=== PATIENT | female | born 1960 | race Caucasian/White ===

== ENCOUNTER 2023-03-30 07:44 | Inpatient (IN) | payer OTHER, MEDICAID ==
[2023-03-29 09:54] LABS: BASOPHILS % (AUTO) 0.7 % (0.0-2.0); EOSINOPHILS # (AUTO) 1.3 K/uL (0.0-0.4); EOSINOPHILS % (AUTO) 18.3 % (0.0-4.0); HEMATOCRIT 34.2 % (36-48); HEMOGLOBIN 11.6 g/dL (12.0-16.0); LYMPHOCYTES # (AUTO) 1.8 K/uL (1.0-5.5); LYMPHOCYTES % (AUTO) 24.9 % (20.5-51.5); MEAN CORPUSCULAR HEMOGLOBIN 31 pg (27-31); MEAN CORPUSCULAR HGB CONC 34 % (32-36); MEAN CORPUSCULAR VOLUME 91 fL (79.0-98.0); MONOCYTES # (AUTO) 0.3 K/uL (0.0-1.0); MONOCYTES % (AUTO) 4.8 % (1.7-9.3); NEUTROPHILS # (AUTO) 3.6 K/uL (1.8-7.7); NEUTROPHILS % (AUTO) 51.3 % (40.0-70.0); PLATELET COUNT (AUTO) 358 K/uL (130-430); RED BLOOD CELL COUNT(AUTO) 3.75 MIL/uL (4.2-6.2); RED CELL DISTRIBUTION WIDTH 14.8 % (9.0-15.0); WHITE BLOOD COUNT (AUTO) 7.1 K/uL (4.8-10.8)
[2023-03-29 10:11] LABS: ALBUMIN 3.4 g/dL (3.4-4.8); CALCIUM 9.2 mg/dL (8.4-11.0); CREATININE 0.69 mg/dL (0.55-1.30); POTASSIUM 3.8 mmol/L (3.5-5.1); PROTHROMBIN TIME 9.9 SECS (9.5-12.5); TOTAL BILIRUBIN 0.3 mg/dL (0.0-1.0); TOTAL PROTEIN, SERUM 7.4 g/dL (6.4-8.3)
[~2023-03-30] VITALS: Ht 165.1 cm; Wt 82.6 kg
[~2023-03-30 07:44] MED LIST: ACETAMINOPHEN 500 MG TABLET PO ONE; CEFAZOLIN SOD 2 GM in D5W 50 ML IV ONE; CELECOXIB 200 MG CAPSULE PO ONE; GABAPENTIN 300 MG CAPSULE PO ONE; SCOPOLAMINE HYDROBROMIDE 1 MG PATCH .72 H (TRANSDERM-SCOP) TD ONE; oxyCODONE HCL 10 MG TAB.ER.12H PO ONE
[2023-03-30] MEDS ORDERED: ACETAMINOPHEN 500 MG TABLET ONE (07:55)
[2023-03-30] MEDS ORDERED: SCOPOLAMINE HYDROBROMIDE 1 MG PATCH .72 H (TRANSDERM-SCOP) TD ONE (07:55)
[2023-03-30] MEDS ORDERED: GABAPENTIN 300 MG CAPSULE ONE (07:56)
[2023-03-30] MEDS ORDERED: CELECOXIB 200 MG CAPSULE ONE (07:56)
[2023-03-30] MEDS ORDERED: oxyCODONE HCL 10 MG TAB.ER.12H PO ONE (07:57)
[2023-03-30] MEDS ORDERED: CELE200C PO (09:05)
[2023-03-30] MEDS ORDERED: GABA-529 PO (09:05)
[2023-03-30] MEDS ORDERED: CHOL3000 (09:05)
[2023-03-30] MEDS ORDERED: ANAS1TAB51 PO (09:05)
[2023-03-30] MEDS ORDERED: ASPI-1393 PO (09:05)
[2023-03-30] MEDS ORDERED: LOSA-415 PO (09:05)
[2023-03-30] MEDS ORDERED: CEL20 PO (09:05)
[2023-03-30] MEDS ORDERED: LOSA-412 PO (09:05)
[2023-03-30] MEDS ORDERED: AMOX500C2 PO (09:05)
[2023-03-30] MEDS ORDERED: FERR-69 PO (09:05)
[2023-03-30] MEDS ORDERED: NALOXONE HCL 0.4 MG/ML AMP (NARCAN) IVP PRN ×3 (09:45)
[2023-03-30] MEDS ORDERED: DIPHENHYDRAMINE HCL 25 MG CAPSULE PO PRN (09:45)
[2023-03-30] MEDS ORDERED: LACTULOSE 20 GM/30 ML UDC PO PRN (09:45)
[2023-03-30] MEDS ORDERED: METOCLOPRAMIDE HCL 10 MG/2 ML VIAL IVP PRN ×2 (09:45→11:00)
[2023-03-30] MEDS ORDERED: BISACODYL 10 MG/SUPPOSITORY RC PRN (09:45)
[2023-03-30] MEDS ORDERED: fentaNYL CITRATE/PF 100 MCG/2 ML AMP ONE (10:00)
[2023-03-30] MEDS ORDERED: ONDANSETRON HCL 4 MG/2 ML VIAL ONE (10:00)
[2023-03-30] MEDS ORDERED: DEXAMETHASONE SOD PHOSPHATE 4 MG/ML VIAL ONE (10:00)
[2023-03-30] MEDS ORDERED: BUPIVACAINE /PF 0.25% 30 ML VIAL INJ ONE (10:00)
[2023-03-30] MEDS ORDERED: VANCOMYCIN HCL 1000 MG/VIAL IV ONE (10:00)
[2023-03-30] MEDS ORDERED: TRANEXAMIC ACID 1,000 MG/10 ML VIAL ONE (10:00)
[2023-03-30] MEDS ORDERED: WATER FOR IRRIGATION,STERILE 1,000 ML IRRIG.SOLN IR ONE (10:00)
[2023-03-30] MEDS ORDERED: NS IRRIG SOLN 1000 ML IR ONE (10:00)
[2023-03-30] MEDS ORDERED: NS 1000 ML IV.SOLN IV ONE (10:00)
[2023-03-30] MEDS ORDERED: MIDAZOLAM HCL/PF 2 MG/2 ML SYRINGE ONE (10:00)
[2023-03-30] MEDS ORDERED: LR 1,000 ML IV.SOLN IV ONE (10:00)
[2023-03-30] MEDS ORDERED: MIDAZOLAM HCL 2 MG/2 ML VIAL (VERSED) IVP PRN (11:00)
[2023-03-30] MEDS: LR 1,000 ML IV SCH ×2 (11:00→21:01)
[2023-03-30] MEDS ORDERED: LORATADINE 10 MG TABLET PO PRN (11:00)
[2023-03-30] MEDS ORDERED: MEPERIDINE HCL/PF 25 MG/ML DISP.SYRIN IVP PRN (11:00)
[2023-03-30] MEDS ORDERED: oxyCODONE HCL 5 MG TABLET PO PRN ×2 (11:00)
[2023-03-30] MEDS ORDERED: traMADol HCL HCL 50 MG TABLET (ULTRAM) PO PRN (11:00)
[2023-03-30] MEDS ORDERED: HYDROmorphone 1 MG/ML INJ. CARTRIDGE IVP PRN ×5 (11:00)
[2023-03-30] MEDS ORDERED: ONDANSETRON HCL 4 MG/2 ML VIAL IVP PRN (11:45)
[2023-03-30] MEDS ORDERED: HYDROmorphone 1 MG/ML INJ. CARTRIDGE ONE (13:15)
[2023-03-30 13:30] VITALS: BP_SYST 153; PULSE 74; RESP 16; TEMP 97.9; O2SAT 94; O2SAT 95
[2023-03-30] MEDS: ACETAMINOPHEN 500 MG TABLET PO SCH ×2 (15:34→22:57)
[2023-03-30] MEDS: KETOROLAC TROMETHAMINE 10 MG TABLET (TORADOL) PO SCH ×2 (15:35→22:00)
[2023-03-30 16:00] VITALS: BP_SYST 122; PULSE 73; RESP 18; TEMP 97.6; O2SAT 94
[2023-03-30] MEDS: ceFAZolin SODIUM 2 GM in D5W 100 ML IV SCH (17:51)
[2023-03-30 20:00] VITALS: BP_SYST 125; PULSE 78; RESP 18; TEMP 98.6; O2SAT 98
[2023-03-30] MEDS: SENNOSIDES/DOCUSATE SODIUM 1 TAB TABLET(SENOKOT-S) PO SCH (21:00)
[2023-03-31 00:30] VITALS: BP_SYST 112; PULSE 67; RESP 18; TEMP 98.4; O2SAT 93
[2023-03-31] MEDS: ceFAZolin SODIUM 2 GM in D5W 100 ML IV SCH ×2 (02:30→10:08)
[2023-03-31 06:26] LABS: BASOPHILS % (AUTO) 0.1 % (0.0-2.0); EOSINOPHILS % (AUTO) 0.1 % (0.0-4.0); HEMATOCRIT 29.6 % (36-48); LYMPHOCYTES # (AUTO) 1.1 K/uL (1.0-5.5); LYMPHOCYTES % (AUTO) 12.2 % (20.5-51.5); MEAN CORPUSCULAR HEMOGLOBIN 31 pg (27-31); MEAN CORPUSCULAR HGB CONC 34 % (32-36); MEAN CORPUSCULAR VOLUME 91 fL (79.0-98.0); MONOCYTES # (AUTO) 0.6 K/uL (0.0-1.0); MONOCYTES % (AUTO) 6.6 % (1.7-9.3); NEUTROPHILS # (AUTO) 7.4 K/uL (1.8-7.7); PLATELET COUNT (AUTO) 323 K/uL (130-430); RED BLOOD CELL COUNT(AUTO) 3.25 MIL/uL (4.2-6.2); RED CELL DISTRIBUTION WIDTH 14.5 % (9.0-15.0); WHITE BLOOD COUNT (AUTO) 9.2 K/uL (4.8-10.8)
[2023-03-31] MEDS: ACETAMINOPHEN 500 MG TABLET PO SCH (06:31)
[2023-03-31] MEDS: KETOROLAC TROMETHAMINE 10 MG TABLET (TORADOL) PO SCH (06:44)
[2023-03-31 07:10] LABS: ALBUMIN 2.8 g/dL (3.4-4.8); CALCIUM 9.1 mg/dL (8.4-11.0); CREATININE 0.84 mg/dL (0.55-1.30); POTASSIUM 4.1 mmol/L (3.5-5.1); TOTAL BILIRUBIN 0.2 mg/dL (0.0-1.0); TOTAL PROTEIN, SERUM 6.5 g/dL (6.4-8.3)
[2023-03-31 08:00] VITALS: O2SAT 99
[2023-03-31] MEDS ORDERED: ASPIRIN 81 MG TAB.CHEW PO SCH (09:00)
[2023-03-31] MEDS ORDERED: LOSARTAN POTASSIUM 25 MG TABLET PO SCH (09:00)
[2023-03-31] MEDS ORDERED: GABAPENTIN 100 MG CAPSULE PO SCH (09:00)
[2023-03-31] MEDS ORDERED: CITALOPRAM HYDROBROMIDE 20 MG TABLET PO SCH (09:00)
[2023-03-31] MEDS ORDERED: DECADRON 4 MG TABLET PO SCH (09:00)
[2023-03-31] MEDS: SENNOSIDES/DOCUSATE SODIUM 1 TAB TABLET(SENOKOT-S) PO SCH (10:03)
[2023-03-31] MEDS ORDERED: CELECOXIB 200 MG CAPSULE PO SCH (11:00)
[2023-03-31 11:04] VITALS: BP_SYST 136; PULSE 64; RESP 15; TEMP 97.7; O2SAT 95
== END 2023-03-31 13:00 | disposition home health service (06) | DRG 470 ==
LOC: SMU 07:44
PROVIDERS: ADMIT Student in an Organized Health Care Education/Training Program; ATTEND Student in an Organized Health Care Education/Training Program
PROC: 0SRC0J9 Replacement of Right Knee Joint with Synthetic Substitute, Cemented, Open Approach (ICD-10-PCS; principal; 2023-03-30 10:07)
DX: M17.11 Unilateral primary osteoarthritis, right knee (principal); Z79.82 Long term (current) use of aspirin; Z79.899 Other long term (current) drug therapy
CPT/HCPCS: 36415; 73560-TC; 80053; 82962; 85025; 85610-TC; 85730-TC; 87081; 88305; 88311; 96379; 97110-GP; 97116-GP; 97530-GP; C1713; C1776; J0690; J1100; J1170; J2405; J3010; J3370; J3465; J3490; J7030; J7060; J7120; J8540

== ENCOUNTER 2023-10-28 11:34 | Outpatient (CLI) | payer OTHER, MEDICAID ==
[~2023-10-28 11:34] MED LIST changes: -ACETAMINOPHEN 500 MG TABLET PO ONE; +AMOX500C2 PO; +ANAS1TAB51 PO; +ASPI-1393 PO; -CEFAZOLIN SOD 2 GM in D5W 50 ML IV ONE; +CEL20 PO; +CELE200C PO; -CELECOXIB 200 MG CAPSULE PO ONE; +CHOL3000; +FERR-69 PO; +GABA-529 PO; -GABAPENTIN 300 MG CAPSULE PO ONE; +LOSA-412 PO; +LOSA-415 PO; -SCOPOLAMINE HYDROBROMIDE 1 MG PATCH .72 H (TRANSDERM-SCOP) TD ONE; -oxyCODONE HCL 10 MG TAB.ER.12H PO ONE
== END 2023-10-28 19:48 | disposition home or self-care (01) ==
LOC: SCT 11:34
PROVIDERS: ATTEND Student in an Organized Health Care Education/Training Program
DX: M17.12 Unilateral primary osteoarthritis, left knee (principal)

== ENCOUNTER 2023-11-02 05:00 | Day surgery (SDC) | payer OTHER, MEDICAID ==
[2023-10-28 11:52] LABS: BASOPHILS # (AUTO) 0.1 K/uL (0.0-0.2); BASOPHILS % (AUTO) 0.8 % (0.0-2.0); EOSINOPHILS # (AUTO) 1.2 K/uL (0.0-0.4); EOSINOPHILS % (AUTO) 17.4 % (0.0-4.0); HEMATOCRIT 36.5 % (36-48); HEMOGLOBIN 12.2 g/dL (12.0-16.0); LYMPHOCYTES # (AUTO) 2.4 K/uL (1.0-5.5); LYMPHOCYTES % (AUTO) 35.5 % (20.5-51.5); MEAN CORPUSCULAR HEMOGLOBIN 30 pg (27-31); MEAN CORPUSCULAR HGB CONC 33 % (32-36); MEAN CORPUSCULAR VOLUME 91 fL (79.0-98.0); MONOCYTES # (AUTO) 0.4 K/uL (0.0-1.0); NEUTROPHILS # (AUTO) 2.7 K/uL (1.8-7.7); NEUTROPHILS % (AUTO) 40.3 % (40.0-70.0); PLATELET COUNT (AUTO) 345 K/uL (130-430); RED BLOOD CELL COUNT(AUTO) 4.02 MIL/uL (4.2-6.2); RED CELL DISTRIBUTION WIDTH 15.1 % (9.0-15.0); WHITE BLOOD COUNT (AUTO) 6.7 K/uL (4.8-10.8)
[2023-10-28 12:06] LABS: PROTHROMBIN TIME 10.3 SECS (9.5-12.5)
[2023-10-28 12:13] LABS: ALBUMIN 3.9 g/dL (3.4-4.8); CALCIUM 9.6 mg/dL (8.4-11.0); CREATININE 0.69 mg/dL (0.55-1.30); POTASSIUM 4.1 mmol/L (3.5-5.1); TOTAL BILIRUBIN 0.4 mg/dL (0.0-1.0); TOTAL PROTEIN, SERUM 7.9 g/dL (6.4-8.3)
[~2023-11-02] VITALS: Ht 165.1 cm; Wt 80.7 kg
[2023-11-02] MEDS ORDERED: SCOPOLAMINE HYDROBROMIDE 1 MG PATCH .72 H (TRANSDERM-SCOP) TD ONE (05:21)
[2023-11-02] MEDS: CELECOXIB 200 MG CAPSULE ONE (06:11)
[2023-11-02] MEDS: SCOPOLAMINE HYDROBROMIDE 1 MG PATCH .72 H (TRANSDERM-SCOP) TD ONE (06:11)
[2023-11-02] MEDS: ACETAMINOPHEN 500 MG TABLET ONE (06:11)
[2023-11-02] MEDS ORDERED: DIPHENHYDRAMINE HCL 25 MG CAPSULE PO PRN (06:45)
[2023-11-02] MEDS ORDERED: LACTULOSE 20 GM/30 ML UDC PO PRN (06:45)
[2023-11-02] MEDS ORDERED: BISACODYL 10 MG/SUPPOSITORY RC PRN (06:45)
[2023-11-02] MEDS ORDERED: METOCLOPRAMIDE HCL 10 MG/2 ML VIAL IVP PRN ×2 (06:45→09:00)
[2023-11-02] MEDS ORDERED: BUPIVACAINE /EPINEPHRINE/PF 0.25% 30 ML VIAL ONE (07:00)
[2023-11-02] MEDS ORDERED: WATER FOR IRRIGATION,STERILE 1,000 ML IRRIG.SOLN IR ONE (07:00)
[2023-11-02] MEDS ORDERED: CELECOXIB 200 MG CAPSULE PO ONE (07:00)
[2023-11-02] MEDS ORDERED: ACETAMINOPHEN 500 MG TABLET PO ONE (07:00)
[2023-11-02] MEDS ORDERED: LR 1,000 ML IV.SOLN IV ONE (07:00)
[2023-11-02] MEDS ORDERED: ONDANSETRON HCL 4 MG/2 ML VIAL ONE (07:00)
[2023-11-02] MEDS ORDERED: TRANEXAMIC ACID 1,000 MG/10 ML VIAL ONE (07:00)
[2023-11-02] MEDS ORDERED: NS IRRIG SOLN 1000 ML IR ONE (07:00)
[2023-11-02] MEDS ORDERED: METOCLOPRAMIDE HCL 10 MG/2 ML VIAL ONE (07:00)
[2023-11-02] MEDS ORDERED: CEFAZOLIN SOD 2 GM in D5W 50 ML IV ONE (07:00)
[2023-11-02] MEDS ORDERED: MIDAZOLAM HCL 2 MG/2 ML VIAL (VERSED) ONE (07:15)
[2023-11-02] MEDS ORDERED: ONDANSETRON HCL 4 MG/2 ML VIAL IVP PRN ×2 (09:00→11:45)
[2023-11-02] MEDS ORDERED: ePHEDrine sulfate 50 MG/ML VIAL IVP PRN (09:00)
[2023-11-02] MEDS ORDERED: LABETALOL 100 MG/ 20ML VIAL IVP PRN (09:00)
[2023-11-02] MEDS ORDERED: HYDROmorphone 1 MG/ML INJ. CARTRIDGE IVP PRN ×5 (09:00→11:00)
[2023-11-02] MEDS ORDERED: TAMSULOSIN HCL 0.4 MG CAP PO ONE (10:45)
[2023-11-02] MEDS ORDERED: HYDROmorphone 1 MG/ML INJ. CARTRIDGE ONE (10:47)
[2023-11-02 10:53] VITALS: PULSE 62; RESP 18; TEMP 97.3; O2SAT 100
[2023-11-02] MEDS ORDERED: traMADol HCL HCL 50 MG TABLET (ULTRAM) PO PRN (11:00)
[2023-11-02] MEDS ORDERED: LORATADINE 10 MG TABLET PO PRN (11:00)
[2023-11-02] MEDS ORDERED: oxyCODONE HCL 5 MG TABLET PO PRN (11:00)
[2023-11-02] MEDS ORDERED: ceFAZolin SODIUM 2 GM in D5W 50 ML IV SCH (11:15)
[2023-11-02 11:33] VITALS: BP_SYST 153
[2023-11-02] MEDS: HYDROmorphone 1 MG/ML INJ. CARTRIDGE IVP PRN (11:56)
[2023-11-02] MEDS ORDERED: oxyCODONE HCL 5 MG TABLET ONE (13:28)
[2023-11-02] MEDS: oxyCODONE HCL 5 MG TABLET PO PRN (13:30)
[2023-11-02] MEDS ORDERED: KETOROLAC TROMETHAMINE 10 MG TABLET (TORADOL) PO SCH (14:00)
[2023-11-02] MEDS ORDERED: ACETAMINOPHEN 500 MG TABLET PO SCH (14:00)
[2023-11-02] MEDS ORDERED: SENNOSIDES/DOCUSATE SODIUM 1 TAB TABLET(SENOKOT-S) PO SCH (21:00)
[2023-11-03] MEDS ORDERED: ASPIRIN 81 MG TAB.CHEW PO SCH (09:00)
[2023-11-03] MEDS ORDERED: TAMSULOSIN HCL 0.4 MG CAP PO SCH (09:00)
[2023-11-03] MEDS ORDERED: CELECOXIB 200 MG CAPSULE PO SCH (11:00)
== END 2023-11-02 15:10 | disposition home or self-care (01) ==
LOC: SDS 05:00 → SMU 05:00 → SDS 15:10
PROVIDERS: ATTEND Student in an Organized Health Care Education/Training Program
DX: M17.12 Unilateral primary osteoarthritis, left knee (principal); M25.762 Osteophyte, left knee; M25.561 Pain in right knee; I10 Essential (primary) hypertension; K21.9 Gastro-esophageal reflux disease without esophagitis; I25.2 Old myocardial infarction; Z96.651 Presence of right artificial knee joint; Z79.82 Long term (current) use of aspirin; Z79.899 Other long term (current) drug therapy; Z80.3 Family history of malignant neoplasm of breast; Z82.49 Family history of ischemic heart disease and other diseases of the circulatory system; Z83.3 Family history of diabetes mellitus
CPT/HCPCS: 80053; 85025; 85610; 85730; 87081; 36415 ×2; 71046; 27447; 97162; 64447; 83037; 73560; 97110; 97530; 97116; 88305; 88311; J3490 ×2; J0690; J0696; J2765; J3465; J2405; J1170; J7060 ×2; J7120; C1713 ×3; C1776 ×3; S2900